=== PATIENT | female | born 1945 | race Caucasian/White ===

== ENCOUNTER 2019-09-19 18:22 | Emergency (ER) | payer OTHER, BC ==
[~2019-09-19] VITALS: Ht 160 cm; Wt 72.6 kg
[2019-09-19] MEDS ORDERED: LEVOXYL88 MCG PO (18:25)
[2019-09-19] MEDS ORDERED: OXYBUTYNIN 5 MG5 M2 PO (18:39)
[2019-09-19] MEDS ORDERED: ZESTRIL5 MG PO (18:39)
[2019-09-19] MEDS ORDERED: NORVASC5 MG PO (18:39)
[2019-09-19] MEDS ORDERED: PANTOPRAZOLE SO40 M1 PO (18:40)
[2019-09-19] MEDS ORDERED: LIPITOR40 MG PO (18:40)
[2019-09-19] MEDS ORDERED: VENLAFAXINE HCL75 M2 PO (18:40)
[2019-09-19] MEDS ORDERED: ABILIFY10 MG PO (18:40)
[2019-09-19] MEDS ORDERED: DEPAKOTE ER500 M1 PO (18:41)
[2019-09-19 18:47] LABS: ABSOLUTE NEUTROPHILS 4.6 thou/uL (1.4-8.2); BASOPHILS 0.7 % (0.0-2.0); EOSINOPHILS 0.5 % (0.0-3.0); HEMATOCRIT 39.5 % (37.0-47.0); HEMOGLOBIN 12.8 gm/dL (12.0-15.0); LYMPHOCYTES 30.1 % (24.0-44.0); MCH 31.8 pg (26.0-34.0); MCHC 32.4 g/dL (28.0-37.0); MCV 98.2 fL (80.0-100.0); MONOCYTES 9.7 % (1.0-8.0); PLATELET COUNT 237 thou/uL (150-400); RBC 4.02 mil/uL (4.20-5.00); RDW 13.3 % (10.5-14.5); WBC 7.8 thou/uL (4.0-11.0)
[2019-09-19 18:54] LABS: ANION GAP 13 mmol/L (7-16); BUN 36 mg/dL (7-18); CALCIUM 9.8 mg/dL (8.5-10.1); CHLORIDE 104 mmol/L (98-107); CO2 23 mmol/L (21-32); GLUCOSE 112 mg/dL (74-106); POTASSIUM 4.6 mmol/L (3.5-5.1); SODIUM 140 mmol/L (136-145)
[2019-09-19 19:05] LABS: ALBUMIN 3.7 g/dL (3.4-5.0); LIPASE 153 U/L (73-393); SGOT 26 U/L (15-37); SGPT 23 U/L (30-65); TOTAL BILIRUBIN 0.4 mg/dL (<0.1-1.0); TOTAL PROTEIN 7.6 g/dL (6.4-8.2); TROPONIN-I <0.06 ng/mL (<0.06)
[2019-09-19 19:44] LABS: URINE BILIRUBIN NEGATIVE (Negative); URINE BLOOD 1+ (Negative); URINE CLARITY CLEAR; URINE COLOR YELLOW; URINE GLUCOSE-RANDOM* NEGATIVE (Negative); URINE KETONES NEGATIVE (Negative); URINE LEUKOCYTES-REFLEX NEGATIVE (Negative); URINE NITRITE-REFLEX NEGATIVE (Negative); URINE PROTEIN (DIPSTICK) NEGATIVE (Negative); URINE UROBILINOGEN 0.2 E.U./dl (0.2-1.0)
[2019-09-19 19:48] LABS: SQUAMOUS 0-3 Few /LPF (0-3); URINE WBC-REFLEX None Seen /HPF (0-5)
[2019-09-19 19:49] LABS: BACTERIA-REFLEX None Seen /HPF (None Seen); CASTS None Seen /LPF (None Seen); CRYSTALS None Seen /LPF (None Seen); URINE RBC 0-2 Rare /HPF (0-2)
[2019-09-19] MEDS ORDERED: ZOFRAN ODT4 MG PO (21:13)
[2019-09-19 21:28] VITALS: BP 140/80
--- NOTE | 2019-09-20 08:34 | EKG ---
[place] [address] [employer] [place] [address] ELECTROCARDIOGRAM REPORT Name: AP DANIEL Room #: DEP [facility]#: [id number] Admission: 09/19/19 Attend Phys: Discharge: 09/19/19 Date of : 49 Report #: [id number] THIS REPORT FOR: //name// [facility] ED Test Date: 2019-09-19 Test Time: 18:40:11 Pat Name: AP DANIEL Department: Room: Gender: F [employer] Supervisor: [facility] : 1945 Requested By: Carroll Tierney Order Number: [id number] MD: Hima Foss Measurements Intervals [place] Rate: 88 P: 66 AK: 143 QRS: 41 QRSD: 85 T: -2 QT: 363 QTc: 440 Interpretive Statements Sinus rhythm Borderline ST depression, diffuse leads No previous ECG available for comparison Electronically Signed On 09-20-2019 8:34:21 BASIC ACOUSTIC ANALYST by Hima Foss [email or web address] <ELECTRONICALLY SIGNED> By: Hima Foss MD, [facility] 09/20/19 0834 1840 1840 Hima Foss MD, FACC /EPI
== END 2019-09-19 21:38 | disposition home or self-care (01) ==
LOC: ER 18:22
PROVIDERS: Emergency Medicine
DX: R11.0 Nausea (principal); Z88.6 Allergy status to analgesic agent